=== PATIENT | female | born 1980 | race African-American/Black ===

== ENCOUNTER 2017-01-30 01:00 | Emergency (ER) | payer OTHER ==
[~2017-01-30] VITALS: Ht 165.1 cm; Wt 115.7 kg
[~2017-01-30 01:00] MED LIST: ACET325T9 PO; HYDR-971 PO; NAPR500T3 PO; PROAIR HFA8.5 GM INH
[2017-01-30 01:05] VITALS: BP 134/76
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
[2017-01-30 02:03] LABS: BILIRUBIN,URINE NEGATIVE (NEG); GLUCOSE,URINE NEGATIVE (NEG); NITRITE,URINE NEGATIVE (NEG); PROTEIN,URINE NEGATIVE (NEG-TRACE); UROBILINOGEN,URINE 0.2 mg/dL (0.2 mg/dL)
[2017-01-30 02:15] LABS: BACTERIA,URINE 0 /HPF (0-FEW); RBC,URINE OCC /HPF (0-2); SQUAMOUS EPITHELIAL CELL,UR FEW /LPF; WBC,URINE OCC /HPF (0-4)
[2017-01-30 03:59] LABS: NEG OBC UR NEG; POS OBC UR POS
[2017-01-30] MEDS ORDERED: NAPR500T PO (05:06)
[2017-01-30] MEDS ORDERED: TIZA4CAP3 PO (05:06)
[2017-01-30] MEDS ORDERED: IBUPROFEN 800 MG TABLET. PO ONE (05:15)
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
== END 2017-01-30 05:11 | disposition home or self-care (01) ==
LOC: ER 01:00
DX: S16.1XXA Strain of muscle, fascia and tendon at neck level, initial encounter (principal); S29.019A Strain of muscle and tendon of unspecified wall of thorax, initial encounter; J45.909 Unspecified asthma, uncomplicated; F17.210 Nicotine dependence, cigarettes, uncomplicated; V49.49XA Driver injured in collision with other motor vehicles in traffic accident, initial encounter; Y93.89 Activity, other specified; Y99.8 Other external cause status; Y92.488 Other paved roadways as the place of occurrence of the external cause
CPT/HCPCS: 72040; 72072; 81001; 81025; 99285-25